=== PATIENT | male | born 1950 | race African-American/Black ===

== ENCOUNTER 2017-06-01 14:12 | Emergency (ER) | payer MEDICARE ==
[~2017-06-01] VITALS: Ht 182.9 cm; Wt 97.0 kg
[~2017-06-01 14:12] MED LIST: ASPI-1159 PO; CYCL10TA7 PO; DOCU240C26 PO; GABA300C PO; TAMS0.4C31 PO; TRAM50TA94 PO
[2017-06-01 14:46] VITALS: BP 109/63
== END 2017-06-01 20:25 | disposition left against medical advice (07) ==
LOC: ER 15:23
DX: L08.9 Local infection of the skin and subcutaneous tissue, unspecified (principal); Z53.21 Procedure and treatment not carried out due to patient leaving prior to being seen by health care provider

== ENCOUNTER 2017-06-26 19:26 | Emergency (ER) | payer MEDICARE ==
[~2017-06-26] VITALS: Ht 182.9 cm; Wt 98.3 kg
[2017-06-26] MEDS ORDERED: HYDROCODONE/ACETAMINOPHEN 5/325MG TABLET PO ONE (23:30)
[2017-06-27 00:12] VITALS: BP 108/72
== END 2017-06-27 00:12 | disposition home or self-care (01) ==
LOC: ER 19:26
DX: S62.524A Nondisplaced fracture of distal phalanx of right thumb, initial encounter for closed fracture (principal); I10 Essential (primary) hypertension; E78.00 Pure hypercholesterolemia, unspecified; F17.200 Nicotine dependence, unspecified, uncomplicated; W01.0XXA Fall on same level from slipping, tripping and stumbling without subsequent striking against object, initial encounter; Y93.89 Activity, other specified; Y92.89 Other specified places as the place of occurrence of the external cause; Y99.8 Other external cause status
CPT/HCPCS: 29125; 73140; 99284

== ENCOUNTER 2017-08-11 04:51 | Emergency (ER) | payer MEDICARE ==
[~2017-08-11] VITALS: Ht 182.9 cm; Wt 100.0 kg
[2017-08-11 04:58] VITALS: BP 152/95
[2017-08-11] MEDS ORDERED: KETOROLAC 60MG/2ML VIAL IM ONE (06:30)
== END 2017-08-11 08:11 | disposition home or self-care (01) ==
LOC: ER 04:51
DX: M19.041 Primary osteoarthritis, right hand (principal); F41.9 Anxiety disorder, unspecified; I25.10 Atherosclerotic heart disease of native coronary artery without angina pectoris; I10 Essential (primary) hypertension; N40.0 Benign prostatic hyperplasia without lower urinary tract symptoms; F17.200 Nicotine dependence, unspecified, uncomplicated; F14.10 Cocaine abuse, uncomplicated; Z88.0 Allergy status to penicillin
CPT/HCPCS: 73140; 96372; 99284; J1885

== ENCOUNTER 2017-10-28 01:39 | Emergency (ER) | payer MEDICARE ==
[~2017-10-28] VITALS: Ht 182.9 cm; Wt 98.5 kg
[~2017-10-28 01:39] MED LIST changes: +ATOR20TA PO
[2017-10-28] MEDS ORDERED: ACETAMINOPHEN 325MG TABLET PO ONE (05:00)
[2017-10-28] MEDS ORDERED: LIDOCAINE HCL/PF 1% 10 MG/ML 5ML VIAL IJ NR (05:00)
[2017-10-28] MEDS ORDERED: LIDOCAINE HCL 1% 20ML VIAL (Pyxis) INJ INFIL ONE (05:00)
[2017-10-28] MEDS ORDERED: CEFTRIAXONE SODIUM 1 G/VIAL IM ONE (05:00)
[2017-10-28 05:14] VITALS: BP 123/77
== END 2017-10-28 05:29 | disposition home or self-care (01) ==
LOC: ER 01:39
DX: S80.862A Insect bite (nonvenomous), left lower leg, initial encounter (principal); L03.116 Cellulitis of left lower limb; W57.XXXA Bitten or stung by nonvenomous insect and other nonvenomous arthropods, initial encounter; Y93.89 Activity, other specified; Y92.89 Other specified places as the place of occurrence of the external cause; I10 Essential (primary) hypertension; Z88.0 Allergy status to penicillin; Z79.899 Other long term (current) drug therapy
CPT/HCPCS: 96372; 99283; J0696; J3490

== ENCOUNTER 2017-10-31 08:40 | Emergency (ER) | payer MEDICARE ==
[~2017-10-31] VITALS: Ht 177.8 cm; Wt 80.0 kg
[2017-10-31] MEDS ORDERED: LIDOCAINE HCL 1% 20ML VIAL (Pyxis) INJ INFIL ONE (11:00)
[2017-10-31] MEDS ORDERED: LIDOCAINE HCL/PF 1% 10 MG/ML 5ML VIAL ONE (11:07)
[2017-10-31 11:54] VITALS: BP 135/98
== END 2017-10-31 11:56 | disposition home or self-care (01) ==
LOC: ER 08:40
DX: L03.116 Cellulitis of left lower limb (principal); L02.416 Cutaneous abscess of left lower limb; I10 Essential (primary) hypertension; Z88.0 Allergy status to penicillin
CPT/HCPCS: 10060; 99283; J3490

== ENCOUNTER 2018-03-20 17:09 | Emergency (ER) | payer MEDICARE ==
[~2018-03-20] VITALS: Ht 182.9 cm; Wt 85.0 kg
[2018-03-20] MEDS ORDERED: IBUPROFEN 600MG TABLET PO STA (20:30)
[2018-03-20 21:59] LABS: BASOPHILS % 0.5 % (0.0-2.0); HEMATOCRIT. 41.6 % (42.0-52.0); HEMOGLOBIN. 13.7 g/dL (14.0-18.0); LYMPHOCYTES % 39.1 % (20.0-50.0); MEAN CORPUSCULAR HEMOGLOBIN 29.2 pg (28.0-32.0); MEAN CORPUSCULAR VOLUME 88.6 fL (80.0-94.0); MEAN PLATELET VOLUME 10.2 fl (7.4-10.4); MONOCYTES % 9.8 % (2.0-8.0); NEUTROPHILS % 48.6 % (40.0-76.0); PLATELET 186 x1000/uL (130-400); RED BLOOD CELL COUNT 4.69 mill/uL (4.7-6.1); RED CELL DISTRIBUTION WIDTH 13.5 % (11.6-14.6)
[2018-03-20 22:03] LABS: CHLORIDE 105 mEq/L (98-107)
[2018-03-20 22:07] LABS: PROTHROMBIN TIME 10.3 sec (9.1-11.1)
[2018-03-20 23:26] VITALS: BP 106/65
== END 2018-03-20 23:45 | disposition home or self-care (01) ==
LOC: ER 23:42
DX: M79.605 Pain in left leg (principal); R07.89 Other chest pain; R00.1 Bradycardia, unspecified; I10 Essential (primary) hypertension; E78.00 Pure hypercholesterolemia, unspecified; N40.0 Benign prostatic hyperplasia without lower urinary tract symptoms; Z88.0 Allergy status to penicillin; Z87.891 Personal history of nicotine dependence; Z79.82 Long term (current) use of aspirin; W01.0XXA Fall on same level from slipping, tripping and stumbling without subsequent striking against object, initial encounter; Y93.89 Activity, other specified; Y92.89 Other specified places as the place of occurrence of the external cause
CPT/HCPCS: 36415; 71045; 73562; 83880; 84484; 93005; 93971; 99284

== ENCOUNTER 2018-06-04 22:03 | Inpatient (IN) | payer MEDICARE ==
[~2018-06-04] VITALS: Ht 172.7 cm; Wt 93.4 kg
[2018-06-04] MEDS ORDERED: ASPIRIN 81MG TABLET PO ONE (22:45)
[2018-06-04 23:02] LABS: BASOPHILS % 1.4 % (0.0-2.0); EOSINOPHILS % 1.1 % (0.0-5.0); HEMATOCRIT. 40.2 % (42.0-52.0); HEMOGLOBIN. 13.5 g/dL (14.0-18.0); LYMPHOCYTES % 39.3 % (20.0-50.0); MEAN CORPUSCULAR HEMOGLOBIN 29.6 pg (28.0-32.0); MEAN CORPUSCULAR VOLUME 88.2 fL (80.0-94.0); MEAN PLATELET VOLUME 9.8 fl (7.4-10.4); MONOCYTES % 9.6 % (2.0-8.0); NEUTROPHILS % 48.6 % (40.0-76.0); PLATELET 159 x1000/uL (130-400); RED BLOOD CELL COUNT 4.56 mill/uL (4.7-6.1); RED CELL DISTRIBUTION WIDTH 14.4 % (11.6-14.6)
[2018-06-04 23:08] LABS: CHLORIDE 97 mEq/L (98-107)
[2018-06-04 23:43] LABS: CLARITY URINE CLEAR (CLEAR); COLOR URINE YELLOW (YELLOW); KETONES URINE NEGATIVE (NEGATIVE); LEUKOCYTE ESTERASE URINE NEGATIVE (NEGATIVE); NITRITE URINE NEGATIVE (NEGATIVE); OCCULT BLOOD URINE NEGATIVE (NEGATIVE); PROTEIN URINE NEGATIVE (NEGATIVE); SPECIFIC GRAVITY URINE 1.006 (1.005-1.030); UROBILINOGEN URINE 0.2 E.U./dL (0.2-1.0)
[2018-06-05] MEDS ORDERED: ENOXAPARIN 100MG/ML SYR SUBCUT ONE (00:15)
[2018-06-05 01:02] LABS: *AMPHETAMINES SCREEN URINE NEGATIVE (NEGATIVE)
[2018-06-05 01:03] LABS: *BARBITURATES SCREEN URINE NEGATIVE (NEGATIVE); *BENZODIAZEPINES SCREEN URINE NEGATIVE (NEGATIVE); *COCAINE SCREEN URINE PRESUMTIVE POSITIVE (NEGATIVE); OPIATES URINE SCREEN NEGATIVE (NEGATIVE)
[2018-06-05 01:05] LABS: CANNABINOID URINE SCREEN NEGATIVE (NEGATIVE); PHENCYCLIDINE URINE SCREEN PRESUMTIVE POSITIVE (NEGATIVE)
[2018-06-05 01:13] LABS: METHADONE URINE SCREEN NEGATIVE (NEGATIVE)
[2018-06-05] MEDS ORDERED: IPRATROPIUM/ALBUTEROL 0.5-3(2.5)MG/3ML NEB INH PRN (02:00)
[2018-06-05] MEDS ORDERED: ONDANSETRON HCL 4MG/2ML INJ IV PRN (02:00)
[2018-06-05] MEDS ORDERED: TRAMADOL 50MG TABLET PO PRN (02:00)
[2018-06-05] MEDS ORDERED: GUAIFENESIN 200MG/10ML SUGAR FREE UDC PO PRN (02:00)
[2018-06-05] MEDS ORDERED: ACETAMINOPHEN 325MG TABLET PO PRN (02:00)
[2018-06-05] MEDS ORDERED: DIPHENHYDRAMINE 50MG/ML VIAL IV PRN (02:00)
[2018-06-05] MEDS ORDERED: MAGNESIUM/ALUMINUM HYDROXIDE/SIMETHICONE 30ML UDC PO PRN (02:00)
[2018-06-05] MEDS ORDERED: CLONIDINE 0.1MG TABLET PO PRN (02:00)
[2018-06-05] MEDS ORDERED: ASPIRIN 81MG EC TABLET PO SCH (09:00)
[2018-06-05 10:35] VITALS: BP 108/61
[2018-06-05 12:00] VITALS: BP_SYST 108; BP_SYST 94; BP_DIAS 60; BP_DIAS 61
[2018-06-05] MEDS ORDERED: SODIUM CHLORIDE 0.9% INJ 3ML FLUSH IVF SCH (14:00)
[2018-06-05 16:00] VITALS: BP 105/62
[2018-06-05 18:58] VITALS: BP 105/62
[2018-06-05 20:00] VITALS: BP 103/65
[2018-06-05] MEDS ORDERED: ATORVASTATIN CALCIUM 20MG TABLET PO SCH ×2 (21:00)
[2018-06-06] MEDS ORDERED: PNEUMOCOCCAL 23-VAL P-SAC VAC 0.5 ML IM ONE (09:00)
== END 2018-06-05 20:47 | disposition home or self-care (01) | DRG 206 ==
LOC: ER 22:03 → 5WST 06-05 01:26 → ENRESERV 06-05 07:04
PROVIDERS: ADMIT Internal Medicine; ATTEND Internal Medicine
DX: M94.0 Chondrocostal junction syndrome [Tietze] (principal); E78.00 Pure hypercholesterolemia, unspecified; E78.5 Hyperlipidemia, unspecified; F14.10 Cocaine abuse, uncomplicated; F17.200 Nicotine dependence, unspecified, uncomplicated; I10 Essential (primary) hypertension; J44.9 Chronic obstructive pulmonary disease, unspecified; Z82.49 Family history of ischemic heart disease and other diseases of the circulatory system; Z88.0 Allergy status to penicillin
CPT/HCPCS: 36415; 71045; 80305; 83880; 84484; 90732; 96372; 99291; J1650

== ENCOUNTER 2018-07-06 06:25 | Emergency (ER) | payer MEDICARE ==
[~2018-07-06] VITALS: Ht 182.9 cm; Wt 98.0 kg
[2018-07-06 07:28] LABS: BASOPHILS % 1.2 % (0.0-2.0); HEMATOCRIT. 41.3 % (42.0-52.0); HEMOGLOBIN. 13.7 g/dL (14.0-18.0); LYMPHOCYTES % 40.9 % (20.0-50.0); MEAN CORPUSCULAR HEMOGLOBIN 29.4 pg (28.0-32.0); MEAN CORPUSCULAR VOLUME 88.9 fL (80.0-94.0); MONOCYTES % 9.1 % (2.0-8.0); NEUTROPHILS % 46.8 % (40.0-76.0); PLATELET 168 x1000/uL (130-400); RED BLOOD CELL COUNT 4.64 mill/uL (4.7-6.1); RED CELL DISTRIBUTION WIDTH 13.7 % (11.6-14.6)
[2018-07-06 07:32] LABS: CHLORIDE 102 mEq/L (98-107)
[2018-07-06] MEDS: LORAZEPAM 2MG/ML CPJ IV ONE (07:40)
[2018-07-06] MEDS: SODIUM CHLORIDE 0.9% 1,000 ML IV ONE (07:40)
[2018-07-06 08:02] LABS: ETHANOL BLOOD < 10 mg/dL
[2018-07-06 08:05] LABS: CREATINE KINASE 506 IU/L (39-308)
[2018-07-06 12:59] VITALS: BP 103/64
== END 2018-07-06 13:00 | disposition home or self-care (01) ==
LOC: ER 06:25
DX: R07.9 Chest pain, unspecified (principal); J45.909 Unspecified asthma, uncomplicated; I11.9 Hypertensive heart disease without heart failure; F14.10 Cocaine abuse, uncomplicated; Z88.0 Allergy status to penicillin; Z79.899 Other long term (current) drug therapy; Z98.890 Other specified postprocedural states
CPT/HCPCS: 36415; 71045; 80053; 80320; 82550; 84484; 85025; 93005; 96374; 99284; J2060; J7030; G0480

== ENCOUNTER 2018-10-04 09:42 | Inpatient (IN) | payer MEDICARE ==
[~2018-10-04] VITALS: Ht 182.9 cm; Wt 90.7 kg
[~2018-10-04 09:42] MED LIST changes: -ASPI-1159 PO; +ASPI-1393 PO
[2018-10-04] MEDS ORDERED: ASPIRIN 325MG EC TABLET PO ONE (11:15)
[2018-10-04] MEDS ORDERED: NITROGLYCERIN 0.4MG TABLET SL SL ONE (11:30)
[2018-10-04 12:09] LABS: BASOPHILS % 0.4 % (0.0-2.0); HEMATOCRIT. 39.4 % (42.0-52.0); HEMOGLOBIN. 13.3 g/dL (14.0-18.0); LYMPHOCYTES % 35.7 % (20.0-50.0); MEAN CORPUSCULAR VOLUME 88.6 fL (80.0-94.0); MEAN PLATELET VOLUME 10.8 fl (7.4-10.4); MONOCYTES % 9.3 % (2.0-8.0); NEUTROPHILS % 53.6 % (40.0-76.0); PLATELET 153 x1000/uL (130-400); RED BLOOD CELL COUNT 4.44 mill/uL (4.7-6.1)
[2018-10-04 12:15] LABS: CHLORIDE 104 mEq/L (98-107)
[2018-10-04] MEDS ORDERED: ENOXAPARIN 80MG/0.8ML SYR SUBCUT ONE (15:30)
[2018-10-04] MEDS ORDERED: LORAZEPAM 0.5MG TABLET PO PRN (16:45)
[2018-10-04] MEDS ORDERED: DOCUSATE SODIUM 100MG CAPSULE PO PRN (16:45)
[2018-10-04] MEDS ORDERED: IPRATROPIUM/ALBUTEROL 0.5-3(2.5)MG/3ML NEB INH PRN (16:45)
[2018-10-04] MEDS ORDERED: ONDANSETRON HCL 4MG/2ML INJ IV PRN (16:45)
[2018-10-04] MEDS ORDERED: POTASSIUM CHLORIDE 20MEQ TABLET SR PO NR (16:45)
[2018-10-04] MEDS ORDERED: NITROGLYCERIN 0.4MG TABLET SL SL PRN (16:45)
[2018-10-04] MEDS ORDERED: CLONIDINE 0.1MG TABLET PO PRN (16:45)
[2018-10-04] MEDS ORDERED: MAGNESIUM/ALUMINUM HYDROXIDE/SIMETHICONE 30ML UDC PO PRN (16:45)
[2018-10-04] MEDS ORDERED: GUAIFENESIN 200MG/10ML SUGAR FREE UDC PO PRN (16:45)
[2018-10-04] MEDS ORDERED: ACETAMINOPHEN 325MG TABLET PO PRN (16:45)
[2018-10-04] MEDS ORDERED: TRAMADOL 50MG TABLET PO PRN (17:00)
[2018-10-04 17:29] LABS: VITAMIN B12 SERUM 422 pg/mL (211-911)
[2018-10-04 17:30] LABS: FOLIC ACID (FOLATE) SERUM > 20.00 ng/mL (>5.38)
[2018-10-04 17:40] LABS: T4 FREE 1.21 ng/dL (0.76-1.46)
[2018-10-04 18:00] VITALS: BP 94/59
[2018-10-04 20:00] VITALS: BP 91/50
[2018-10-04] MEDS: ATORVASTATIN CALCIUM 20MG TABLET PO SCH (20:50)
[2018-10-04] MEDS: ENOXAPARIN 40MG/0.4ML SYR SUBCUT SCH (20:50)
[2018-10-04] MEDS: FAMOTIDINE 20MG TABLET PO SCH (20:51)
[2018-10-04] MEDS ORDERED: ZOLPIDEM TARTRATE 5MG TABLET PO PRN (21:00)
[2018-10-05] VITALS: BP 98/56
[2018-10-05 00:24] LABS: CREATINE KINASE MB FRACTION 6.2 ng/mL (0.5-3.6)
[2018-10-05 04:00] VITALS: BP 93/61
[2018-10-05 08:30] VITALS: BP 102/50
[2018-10-05] MEDS: FAMOTIDINE 20MG TABLET PO SCH ×2 (08:54→20:57)
[2018-10-05] MEDS: ASPIRIN 325MG EC TABLET PO SCH (08:54)
[2018-10-05 09:00] LABS: CREATINE KINASE MB FRACTION 4.8 ng/mL (0.5-3.6)
[2018-10-05 12:39] VITALS: BP 103/55
[2018-10-05 16:05] VITALS: BP 108/64
[2018-10-05 20:05] LABS: *AMPHETAMINES SCREEN URINE PRESUMTIVE POSITIVE (NEGATIVE); *BARBITURATES SCREEN URINE NEGATIVE (NEGATIVE); *BENZODIAZEPINES SCREEN URINE NEGATIVE (NEGATIVE)
[2018-10-05 20:06] LABS: *COCAINE SCREEN URINE PRESUMTIVE POSITIVE (NEGATIVE); CANNABINOID URINE SCREEN NEGATIVE (NEGATIVE); METHADONE URINE SCREEN NEGATIVE (NEGATIVE); OPIATES URINE SCREEN NEGATIVE (NEGATIVE); PHENCYCLIDINE URINE SCREEN NEGATIVE (NEGATIVE)
[2018-10-05] MEDS: ATORVASTATIN CALCIUM 20MG TABLET PO SCH (20:56)
[2018-10-05] MEDS: ENOXAPARIN 40MG/0.4ML SYR SUBCUT SCH (20:56)
[2018-10-05 21:47] VITALS: BP 99/52
[2018-10-06] VITALS: BP 98/58
[2018-10-06 08:00] VITALS: BP 107/59
[2018-10-06] MEDS: ASPIRIN 325MG EC TABLET PO SCH (09:06)
[2018-10-06] MEDS: FAMOTIDINE 20MG TABLET PO SCH (09:06)
[2018-10-06 09:57] VITALS: BP 107/59
== END 2018-10-06 11:15 | disposition home or self-care (01) | DRG 918 ==
LOC: ER 09:42 → 6WST 16:08 → SUPCPDRO 16:16 → EDBEDREQ 16:27 → ENRESERV 16:53
PROVIDERS: ADMIT Internal Medicine; ATTEND Internal Medicine
DX: T40.5X1A Poisoning by cocaine, accidental (unintentional), initial encounter (principal); E87.6 Hypokalemia; F14.10 Cocaine abuse, uncomplicated; E78.00 Pure hypercholesterolemia, unspecified; E78.5 Hyperlipidemia, unspecified; F17.210 Nicotine dependence, cigarettes, uncomplicated; D64.9 Anemia, unspecified; F19.10 Other psychoactive substance abuse, uncomplicated; I10 Essential (primary) hypertension; J44.9 Chronic obstructive pulmonary disease, unspecified; F15.10 Other stimulant abuse, uncomplicated; Z88.0 Allergy status to penicillin; Y92.89 Other specified places as the place of occurrence of the external cause
CPT/HCPCS: 36415; 71045; 80061; 80305; 82553; 82607; 82746; 83036; 83540; 83550; 83880; 84439; 84443; 84484; 93005; 93306; 93970; 96374; 99285; J1650

== ENCOUNTER 2018-10-12 12:51 | Emergency (ER) | payer MEDICARE ==
[~2018-10-12] VITALS: Ht 180.3 cm; Wt 82.0 kg
[2018-10-12 13:50] LABS: BASOPHILS % 0.4 % (0.0-2.0); EOSINOPHILS % 1.5 % (0.0-5.0); HEMATOCRIT. 41.6 % (42.0-52.0); HEMOGLOBIN. 14.1 g/dL (14.0-18.0); LYMPHOCYTES % 27.9 % (20.0-50.0); MEAN CORPUSCULAR HEMOGLOBIN 30.1 pg (28.0-32.0); MEAN CORPUSCULAR VOLUME 88.6 fL (80.0-94.0); MEAN PLATELET VOLUME 10.4 fl (7.4-10.4); MONOCYTES % 8.9 % (2.0-8.0); NEUTROPHILS % 61.3 % (40.0-76.0); PLATELET 142 x1000/uL (130-400); RED BLOOD CELL COUNT 4.69 mill/uL (4.7-6.1); RED CELL DISTRIBUTION WIDTH 13.6 % (11.6-14.6)
[2018-10-12 13:54] LABS: CHLORIDE 103 mEq/L (98-107)
[2018-10-12 13:58] LABS: ETHANOL BLOOD < 10 mg/dL; PARTIAL THROMBOPLASTIN TIME 24.3 sec (23.4-31.0); PROTHROMBIN TIME 10.7 sec (9.6-11.0)
[2018-10-12] MEDS ORDERED: SODIUM CHLORIDE 0.9% 1,000 ML IV NR (15:23)
[2018-10-12 17:02] VITALS: BP 130/81
== END 2018-10-12 20:00 | disposition home or self-care (01) ==
LOC: ER 13:07 → CANBEDREQ 21:28
DX: R42 Dizziness and giddiness (principal); I95.9 Hypotension, unspecified; J45.909 Unspecified asthma, uncomplicated; I25.2 Old myocardial infarction; E78.00 Pure hypercholesterolemia, unspecified; I11.9 Hypertensive heart disease without heart failure; F15.10 Other stimulant abuse, uncomplicated; F14.10 Cocaine abuse, uncomplicated; Z88.0 Allergy status to penicillin
CPT/HCPCS: 36415; 71045; 80320; 83605; 83880; 84484; 93005; 96360; 99284; G0480

== ENCOUNTER 2018-10-12 22:43 | Emergency (ER) | payer MEDICARE ==
[~2018-10-12] VITALS: Ht 180.3 cm; Wt 100.0 kg
[2018-10-13 03:52] VITALS: BP 102/58
== END 2018-10-13 04:22 | disposition short-term general hospital (02) ==
LOC: ER 22:43
DX: R20.0 Anesthesia of skin (principal); I11.9 Hypertensive heart disease without heart failure; E78.00 Pure hypercholesterolemia, unspecified; I25.2 Old myocardial infarction; J45.909 Unspecified asthma, uncomplicated; F14.10 Cocaine abuse, uncomplicated; F15.10 Other stimulant abuse, uncomplicated; Z80.0 Family history of malignant neoplasm of digestive organs; Z79.82 Long term (current) use of aspirin
CPT/HCPCS: 99285

== ENCOUNTER 2018-10-25 05:22 | Emergency (ER) | payer MEDICARE ==
[~2018-10-25] VITALS: Ht 177.8 cm; Wt 100.0 kg
[2018-10-25 07:00] VITALS: BP 123/71
== END 2018-10-25 07:10 | disposition home or self-care (01) ==
LOC: ER 05:22
DX: F14.10 Cocaine abuse, uncomplicated (principal); J45.909 Unspecified asthma, uncomplicated; I11.9 Hypertensive heart disease without heart failure; E78.00 Pure hypercholesterolemia, unspecified; F17.200 Nicotine dependence, unspecified, uncomplicated; I25.2 Old myocardial infarction; Z88.0 Allergy status to penicillin; Z79.82 Long term (current) use of aspirin
CPT/HCPCS: 99283

== ENCOUNTER 2018-10-25 09:47 | Emergency (ER) | payer MEDICARE ==
[~2018-10-25] VITALS: Ht 182.9 cm; Wt 100.0 kg
[2018-10-25 11:56] VITALS: BP 102/67
== END 2018-10-25 12:00 | disposition home or self-care (01) ==
LOC: ER 09:47
DX: F15.10 Other stimulant abuse, uncomplicated (principal); I11.0 Hypertensive heart disease with heart failure; I50.9 Heart failure, unspecified; I20.9 Angina pectoris, unspecified; F17.200 Nicotine dependence, unspecified, uncomplicated; Z88.0 Allergy status to penicillin; Z79.82 Long term (current) use of aspirin
CPT/HCPCS: 99283

== ENCOUNTER 2018-11-04 20:18 | Emergency (ER) | payer MEDICARE ==
[~2018-11-04] VITALS: Ht 182.9 cm; Wt 91.0 kg
[2018-11-04 20:23] VITALS: BP 145/92
== END 2018-11-04 20:45 | disposition left against medical advice (07) ==
LOC: ER 20:18
DX: R45.851 Suicidal ideations (principal); Z53.21 Procedure and treatment not carried out due to patient leaving prior to being seen by health care provider

== ENCOUNTER 2018-12-03 13:05 | Emergency (ER) | payer MEDICARE ==
[~2018-12-03] VITALS: Ht 182.9 cm; Wt 99.0 kg
[2018-12-03] MEDS ORDERED: SODIUM CHLORIDE 0.9% 1,000 ML IV ONE (13:42)
[2018-12-03] MEDS ORDERED: ASPIRIN 81MG TABLET PO ONE (13:45)
[2018-12-03] MEDS ORDERED: KETOROLAC 30MG/ML VIAL IV ONE (14:00)
[2018-12-03 14:38] LABS: BASOPHILS % 0.6 % (0.0-2.0); EOSINOPHILS % 1.9 % (0.0-5.0); HEMATOCRIT. 40.6 % (42.0-52.0); HEMOGLOBIN. 13.7 g/dL (14.0-18.0); LYMPHOCYTES % 28.6 % (20.0-50.0); MEAN CORPUSCULAR VOLUME 88.7 fL (80.0-94.0); MEAN PLATELET VOLUME 10.3 fl (7.4-10.4); MONOCYTES % 12.3 % (2.0-8.0); NEUTROPHILS % 56.6 % (40.0-76.0); PLATELET 142 x1000/uL (130-400); RED BLOOD CELL COUNT 4.58 mill/uL (4.7-6.1); RED CELL DISTRIBUTION WIDTH 13.6 % (11.6-14.6)
[2018-12-03 14:45] LABS: CHLORIDE 105 mEq/L (98-107)
[2018-12-03] MEDS ORDERED: POTASSIUM CHLORIDE 20MEQ TABLET SR PO ONE (15:00)
[2018-12-03 16:16] LABS: *BARBITURATES SCREEN URINE NEGATIVE (NEGATIVE); *BENZODIAZEPINES SCREEN URINE NEGATIVE (NEGATIVE); *COCAINE SCREEN URINE PRESUMTIVE POSITIVE (NEGATIVE); OPIATES URINE SCREEN NEGATIVE (NEGATIVE); PHENCYCLIDINE URINE SCREEN NEGATIVE (NEGATIVE)
[2018-12-03 16:17] LABS: *AMPHETAMINES SCREEN URINE PRESUMTIVE POSITIVE (NEGATIVE); CANNABINOID URINE SCREEN NEGATIVE (NEGATIVE); METHADONE URINE SCREEN NEGATIVE (NEGATIVE)
[2018-12-03 19:20] VITALS: BP 142/77
== END 2018-12-03 19:31 | disposition home or self-care (01) ==
LOC: ER 13:05
DX: R07.89 Other chest pain (principal); F14.10 Cocaine abuse, uncomplicated; I11.9 Hypertensive heart disease without heart failure; N40.0 Benign prostatic hyperplasia without lower urinary tract symptoms; F17.210 Nicotine dependence, cigarettes, uncomplicated; F15.10 Other stimulant abuse, uncomplicated; Z71.6 Tobacco abuse counseling; Z98.890 Other specified postprocedural states; Z88.0 Allergy status to penicillin
CPT/HCPCS: 36415; 71045; 80053; 80305; 83880; 84484; 85025; 86850; 86900; 86901; 93005; 96374; 99284; 99406; J1885; J7030

== ENCOUNTER 2019-02-05 08:45 | Emergency (ER) | payer MEDICARE ==
[~2019-02-05] VITALS: Ht 182.9 cm; Wt 100.0 kg
[2019-02-05 10:00] LABS: BASOPHILS % 0.3 % (0.0-2.0); EOSINOPHILS % 0.5 % (0.0-5.0); HEMATOCRIT. 43.3 % (42.0-52.0); HEMOGLOBIN. 14.2 g/dL (14.0-18.0); LYMPHOCYTES % 22.5 % (20.0-50.0); MEAN CORPUSCULAR HEMOGLOBIN 29.4 pg (28.0-32.0); MEAN CORPUSCULAR VOLUME 89.6 fL (80.0-94.0); MEAN PLATELET VOLUME 10.8 fl (7.4-10.4); MONOCYTES % 10.3 % (2.0-8.0); NEUTROPHILS % 66.4 % (40.0-76.0); PLATELET 145 x1000/uL (130-400); RED BLOOD CELL COUNT 4.83 mill/uL (4.7-6.1); RED CELL DISTRIBUTION WIDTH 13.2 % (11.6-14.6)
[2019-02-05 10:07] LABS: CHLORIDE 97 mEq/L (98-107)
[2019-02-05 10:11] LABS: ETHANOL BLOOD < 10 mg/dL
[2019-02-05] MEDS ORDERED: KETOROLAC 30MG/ML VIAL IV ONE (12:00)
[2019-02-05] MEDS ORDERED: POTASSIUM CHLORIDE 20MEQ TABLET SR PO ONE (12:15)
[2019-02-05 12:31] LABS: *AMPHETAMINES SCREEN URINE PRESUMTIVE POSITIVE (NEGATIVE); *BARBITURATES SCREEN URINE NEGATIVE (NEGATIVE); CANNABINOID URINE SCREEN NEGATIVE (NEGATIVE); PHENCYCLIDINE URINE SCREEN NEGATIVE (NEGATIVE)
[2019-02-05 12:32] LABS: *BENZODIAZEPINES SCREEN URINE NEGATIVE (NEGATIVE); *COCAINE SCREEN URINE PRESUMTIVE POSITIVE (NEGATIVE); METHADONE URINE SCREEN NEGATIVE (NEGATIVE); OPIATES URINE SCREEN NEGATIVE (NEGATIVE)
[2019-02-05 14:00] VITALS: BP 169/90
== END 2019-02-05 14:24 | disposition home or self-care (01) ==
LOC: ER 08:45
DX: R07.89 Other chest pain (principal); F14.129 Cocaine abuse with intoxication, unspecified; F15.129 Other stimulant abuse with intoxication, unspecified; I11.0 Hypertensive heart disease with heart failure; I50.9 Heart failure, unspecified; J44.9 Chronic obstructive pulmonary disease, unspecified; M19.90 Unspecified osteoarthritis, unspecified site; Z88.0 Allergy status to penicillin; Z79.82 Long term (current) use of aspirin
CPT/HCPCS: 36415; 71045; 80053; 80305; 80320; 83880; 84484; 85025; 93005; 96374; 99284; J1885; G0480

== ENCOUNTER 2019-02-05 16:15 | Emergency (ER) | payer MEDICARE ==
[~2019-02-05] VITALS: Ht 175.3 cm; Wt 88.0 kg
[2019-02-05 23:01] LABS: HEMATOCRIT. 41.2 % (42.0-52.0); HEMOGLOBIN. 13.9 g/dL (14.0-18.0); MEAN CORPUSCULAR HEMOGLOBIN 29.9 pg (28.0-32.0); MEAN CORPUSCULAR VOLUME 88.8 fL (80.0-94.0); MEAN PLATELET VOLUME 10.2 fl (7.4-10.4); PLATELET 140 x1000/uL (130-400); RED BLOOD CELL COUNT 4.64 mill/uL (4.7-6.1); RED CELL DISTRIBUTION WIDTH 13.3 % (11.6-14.6)
[2019-02-05 23:07] LABS: CHLORIDE 97 mEq/L (98-107)
[2019-02-05 23:16] LABS: PLATELET ESTIMATE NORMAL
[2019-02-06] MEDS ORDERED: POTASSIUM CHLORIDE 20MEQ TABLET SR PO ONE (00:15)
[2019-02-06 00:17] VITALS: BP 132/71
== END 2019-02-06 00:42 | disposition home or self-care (01) ==
LOC: ER 16:15
DX: R07.89 Other chest pain (principal); E87.6 Hypokalemia; F15.10 Other stimulant abuse, uncomplicated; E78.00 Pure hypercholesterolemia, unspecified; Z79.82 Long term (current) use of aspirin; Z88.0 Allergy status to penicillin; Z79.899 Other long term (current) drug therapy
CPT/HCPCS: 36415; 71045; 84484; 93005; 99284

== ENCOUNTER 2019-02-06 16:15 | Emergency (ER) | payer MEDICARE ==
[~2019-02-06] VITALS: Ht 177.8 cm; Wt 90.0 kg
[2019-02-06 16:18] VITALS: BP 160/92
== END 2019-02-06 22:09 | disposition left against medical advice (07) ==
LOC: ER 16:15
DX: R07.89 Other chest pain (principal); Z53.21 Procedure and treatment not carried out due to patient leaving prior to being seen by health care provider

== ENCOUNTER 2019-03-24 14:53 | Emergency (ER) | payer MEDICARE ==
[~2019-03-24] VITALS: Ht 185.4 cm; Wt 90.0 kg
[~2019-03-24 14:53] MED LIST changes: -ASPI-1393 PO; +ASPI-1497 PO
[2019-03-24 15:11] VITALS: BP 123/67
== END 2019-03-24 20:29 | disposition left against medical advice (07) ==
LOC: ER 15:24
DX: M79.10 Myalgia, unspecified site (principal); Z53.21 Procedure and treatment not carried out due to patient leaving prior to being seen by health care provider